=== PATIENT | female | born 1995 | race Caucasian/White ===

== ENCOUNTER 2020-06-28 12:39 | Emergency (ER) | payer BC, SELFPAY ==
--- NOTE | 2020-06-28 12:47 | ED.GENADULT ---
HPI - General Adult General Chief complaint: Eye Problems Stated complaint: allergic reaction to fake eyelashes Time Seen by Provider: 06/28/20 12:48 Source: patient Mode of arrival: ambulatory Limitations: no limitations History of Present Illness HPI narrative: 24-year-old female patient presents to the [facility] with complaints of eye puffiness, redness and itchiness that started yesterday. Patient states she had some fake eyelashes put on about 1 week ago and started having a little bit of itchiness to the left eye and a little bit of puffiness. Patient also noticed some itchiness to the right eyelid yesterday. Patient states she did take a Benadryl yesterday and states that this morning when she woke up had more puffiness to the right eye as well as more itchiness to bilateral eyes. Patient states she did get the eyelashes removed today and did take another Benadryl this morning. Denies any vision changes. Denies any discharge coming from the eyes. Denies any pain to the eyes. Related Data Allergies Allergy/AdvReac Type Severity Reaction Status Date / Time No Known Allergies Allergy Verified 06/28/20 13:05 Review of Systems Review of Systems: Narrative: CONSTITUTIONAL: Denies fever, chills, or sweats. EYES: Denies visual changes, redness, or discharge. ENT: Denies rhinorrhea, congestion, sore throat, or otalgia. Positive redness, puffiness to bilateral upper eyelids since yesterday CARDIOVASCULAR: Denies chest pain, palpitations, or edema. RESPIRATORY: Denies cough or dyspnea. GASTROINTESTINAL: Denies abdominal pain, nausea, vomiting, or diarrhea. GENITOURINARY: Denies dysuria or hematuria. SKIN: Denies rash or itching. MUSCULOSKELETAL: Denies back pain, joint pain, or myalgia. NEUROLOGIC: Denies headache, numbness, or weakness. PSYCHIATRIC: Denies anxiety or depression. PMFSH Comments At the time of my signature I agree with nursing past medical history, surgical, social, and family history. There is no relevant family history pertinent to the presenting complaint. Exam Narrative: Exam Narrative: GENERAL: Well-appearing, well-nourished, and in no acute distress. HEAD: Normocephalic, atraumatic. EYES: PERRLA and EOMI. patient has some erythema and puffiness noted to bilateral upper eyelids. There is no conjunctivitis present no irritation to bilateral eyes themselves. There is no open wounds or discharge noted at this time. No evidence of infection at this time. ENT: Nares clear, no rhinorrhea or epistaxis. Mucous membranes moist. NECK: Supple. No lymphadenopathy CHEST: Clear to auscultation. No respiratory distress. HEART: Regular rate and rhythm. No murmur heard. Normal peripheral pulses. ABDOMEN: Soft, nontender, nondistended, normal active bowel sounds. EXTREMITIES: Normal range of motion. No edema. SKIN: Warm, dry, no rash. NEURO: No focal deficits. Alert and oriented x3. Course Vital Signs Vital signs: Vital Signs Temperature 37.0 C 06/28/20 12:59 Pulse Rate 95 06/28/20 12:59 Respiratory Rate 16 06/28/20 12:59 Blood Pressure 126/73 06/28/20 12:59 Pulse Oximetry 100 06/28/20 12:59 Temperature 37.0 C 06/28/20 12:59 Pulse Rate 95 06/28/20 12:59 Respiratory Rate 16 06/28/20 12:59 Blood Pressure 126/73 06/28/20 12:59 Pulse Oximetry 100 06/28/20 12:59 Vital signs reviewed Medical Decision Making Differential Diagnosis Differential Diagnosis: Differential diagnosis: Conjunctivitis, foreign body, corneal ulcer, Keratitis, dendritic lesions, corneal abrasion, very orbital infection, orbital cellulitis, orbital pain, acute narrow angle glaucoma, detached retina, central retinal artery occlusion, complete hyphema, vitreous hemorrhage, optic neuritis, globe disruption Discussed with patient that this definitely could have been an allergic reaction to the new eyelashes or possibly seasonal allergies. Discussed with patient we will discharge her home with a 24-hour antihistam
[2020-06-28 12:59] VITALS: BP 126/73; PULSE 95; RESP 16; TEMP 37; O2SAT 100
== END 2020-06-28 13:13 | disposition home or self-care (01) ==
PROVIDERS: Emergency Provider Nurse Practitioner Family; PCP Obstetrics & Gynecology
DX: L23.9 Allergic contact dermatitis, unspecified cause (principal)
CPT/HCPCS: 99203; G0463

== ENCOUNTER 2023-07-14 01:50 | Emergency (ER) | payer OTHER, SELFPAY ==
[2023-07-14 02:02] VITALS: BP 142/98; PULSE 114; RESP 15; TEMP 36.6; O2SAT 100
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
[2023-07-14 02:37] VITALS: BP 140/94; PULSE 99; RESP 15; O2SAT 100
== END 2023-07-14 02:38 | disposition home or self-care (01) ==
LOC: ANHED 02:26
PROVIDERS: Emergency Provider Emergency Medicine; PCP Obstetrics & Gynecology
DX: S81.811A Laceration without foreign body, right lower leg, initial encounter (principal); W26.9XXA Contact with unspecified sharp object(s), initial encounter; F10.129 Alcohol abuse with intoxication, unspecified; Y90.9 Presence of alcohol in blood, level not specified
CPT/HCPCS: 12004; 99282